=== PATIENT | female | born 1965 | race Caucasian/White ===

== ENCOUNTER → 2016-10-18 | Outpatient (CLI) | payer OTHER ==
[~2016-10-18] MED LIST: AUGMENTIN 875875 MG PO; GABAPENTIN100 M2 PO; PREDNISONE10 MG PO; ROBITUSSIN AC 110 ML PO; VENTOLIN H0.09 MG/AC INH
[2016-10-18 12:54] LABS: HEMOGLOBIN A1c 5.4 % (4.8-5.6)
[2016-10-18 13:03] LABS: ALBUMIN 3.5 gm/dl (3.1-4.5); ALKALINE PHOSPHATASE 101 U/L (45-117); BILIRUBIN, DIRECT 0.2 mg/dL (0.0-0.2); BILIRUBIN, TOTAL 0.4 mg/dl (0.2-1.0); BUN 13 mg/dl (7-24); CARBON DIOXIDE 29 mmol/L (21-32); CHLORIDE 108 mmol/L (98-107); CHOLESTEROL 162 mg/dL (<200); EST GLOM FILT AFRICAN AMERICAN > 60 ml/min; GLUCOSE 128 mg/dL (65-99); HDL CHOLESTEROL 54 mg/dl (40-60); LDL CHOLESTEROL 75 mg/dL (9-159); SGOT/AST 54 IU/L (3-35); SGPT/ALT 66 U/L (12-78); SODIUM 140 mmol/L (136-145); TOTAL PROTEIN 7.5 gm/dL (6.4-8.2); TRIGLYCERIDES 164 mg/dl (<150); VLDL CHOLESTEROL 33 mg/dL (6-40)
[2016-10-18 13:04] LABS: HIV1/2 RAPID ANTIBODIES NEGATIVE (NEGATIVE)
[2016-10-18 14:00] LABS: FOLIC ACID 13.81 ng/mL (>5.38); VITAMIN D, 25-HYDROXY 10.6 ng/mL (30-100)
[2016-10-19 07:07] LABS: HEP B CORE AB TOTAL 006718 Positive (Negative); HEPATITIS B SURFACE AB 006395 Non Reactive (.)
[2016-10-20 15:08] LABS: AB TO HEPATITIS Be AG 006635 Positive (Negative)
== END | disposition home or self-care (01) ==
LOC: LAB 11:19 → RESCLI 11:19
PROVIDERS: Hospitalist
DX: Z00.00 Encounter for general adult medical examination without abnormal findings (principal)

== ENCOUNTER → 2016-11-01 | Outpatient (CLI) | payer OTHER | END | disposition home or self-care (01) | LOC: RESCLI 01:27 | DX: I10 Essential (primary) hypertension (principal); B19.10 Unspecified viral hepatitis B without hepatic coma; N39.0 Urinary tract infection, site not specified; E55.9 Vitamin D deficiency, unspecified; E53.8 Deficiency of other specified B group vitamins ==

== ENCOUNTER 2017-07-17 13:04 | Inpatient (IN) | payer OTHER ==
[~2017-07-17] VITALS: Ht 177.8 cm; Wt 79.8 kg
--- NOTE | ~2017-07-17 | EKG ---
[place], [place] ELECTROCARDIOGRAM REPORT NAME: ROMINA MCKEON UNIT #: [id number] ROOM: [facility] DOCTOR: CORETTA OJEDA MD BIRTHDATE: [birth year] DOS: 07/18/2017 IMPRESSION: Sinus bradycardia, otherwise normal ECG. Coretta Ojeda MD CM:EKGRPT:ELECTROCARDIOGRAM REPORT [phone] CORETTA OJEDA MD
--- NOTE | ~2017-07-17 | EKG ---
[place], [place] ELECTROCARDIOGRAM REPORT NAME: ROMINA MCKEON UNIT #: [id number] ROOM: [facility] DOCTOR: CORETTA OJEDA MD BIRTHDATE: [birth year] DOS: 07/18/2017 ELECTROCARDIOGRAM REPORT RESULTS: Normal sinus rhythm, nonspecific ST-T changes, abnormal ECG. No old EKGs to compare. Coretta Ojeda MD CM:EKGRPT:ELECTROCARDIOGRAM REPORT [id number] CORETTA OJEDA MD
[2017-07-17 13:16] VITALS: BP 130/91
[2017-07-17 13:27] LABS: BASO % 0.5 % (0.0-1.0); EOS # 0.1 10*3/uL (0.0-0.4); EOS % 1.9 % (1.0-4.0); HEMATOCRIT 44.6 % (37.0-47.0); HEMOGLOBIN 15.4 g/dl (12.0-16.0); LYMPH # 2.8 10*3/uL (1.3-4.4); LYMPH % 47.3 % (27.0-41.0); MEAN CELL VOLUME 96.3 fl (81.0-99.0); MEAN CORPUSCULAR HGB 33.3 pg (27.0-31.0); MEAN CORPUSCULAR HGB CONC 34.5 g/dl (33.0-37.0); MEAN PLATELET VOLUME 11.3 fl (9.6-12.3); MONO # 0.3 10*3/uL (0.1-1.0); MONO % 4.4 % (3.0-9.0); NEUT # 2.7 10*3/uL (2.3-7.9); NEUT % 45.7 % (47.0-73.0); PLATELET COUNT AUTOMATED 147 10*3/uL (130-400); RED BLOOD COUNT 4.63 10*6/uL (4.10-5.10); RED CELL DISTRI WIDTH 12.1 % (0-14.5); WHITE BLOOD COUNT 5.9 10*3/uL (4.8-10.8)
[2017-07-17 13:43] LABS: ALBUMIN 3.6 gm/dl (3.1-4.5); ALKALINE PHOSPHATASE 93 U/L (45-117); BUN 11 mg/dl (7-24); CHLORIDE 105 mmol/L (98-107); CREATININE 0.69 mg/dL (0.55-1.02); POTASSIUM 4.5 mmol/L (3.5-5.1); SGOT/AST 65 IU/L (3-35); SGPT/ALT 87 U/L (12-78); SODIUM 139 mmol/L (136-145); TOTAL PROTEIN 7.9 gm/dL (6.4-8.2)
[2017-07-17 13:44] LABS: TROPONIN I < 0.015 ng/ml (<0.045)
[2017-07-17 14:03] VITALS: BP 134/86
[2017-07-17 15:00] VITALS: BP 133/85
[2017-07-17 16:13] LABS: URINE AMPHETAMINES < 1000 (1000ng/ml); URINE BARBITURATES < 200 (200ng/ml); URINE BENZODIAZEPINES < 200 (200ng/ml); URINE CANNABINOIDS (THC) < 50 (50ng/ml); URINE COCAINE < 300 (300ng/ml); URINE METHADONE < 300 (300ng/ml); URINE OPIATES < 300 (300ng/ml)
[2017-07-17 16:18] LABS: URINE PHENCYCLIDINE < 25 (25ng/ml)
[2017-07-17 20:00] VITALS: BP 124/68
[2017-07-17] MEDS ORDERED: NEXIUM 24HR20 M2 PO (20:30)
[2017-07-17] MEDS ORDERED: IBUPROFEN PM C1 EACH PO (20:32)
[2017-07-17] MEDS ORDERED: IBUPROFEN IB200 M1 PO (20:33)
[2017-07-17] MEDS ORDERED: TUMS300 MG PO (20:34)
[2017-07-18] VITALS: BP 128/82
[2017-07-18 04:00] VITALS: BP 114/81; BP 120/54
[2017-07-18 08:00] VITALS: BP 119/72
[2017-07-18 08:07] LABS: BASO % 0.4 % (0.0-1.0); EOS # 0.1 10*3/uL (0.0-0.4); EOS % 2.6 % (1.0-4.0); HEMATOCRIT 41.8 % (37.0-47.0); HEMOGLOBIN 14.7 g/dl (12.0-16.0); LYMPH # 2.5 10*3/uL (1.3-4.4); LYMPH % 55.6 % (27.0-41.0); MEAN CELL VOLUME 95.7 fl (81.0-99.0); MEAN CORPUSCULAR HGB 33.6 pg (27.0-31.0); MEAN CORPUSCULAR HGB CONC 35.2 g/dl (33.0-37.0); MEAN PLATELET VOLUME 12.2 fl (9.6-12.3); MONO # 0.3 10*3/uL (0.1-1.0); MONO % 6.8 % (3.0-9.0); NEUT # 1.6 10*3/uL (2.3-7.9); NEUT % 34.4 % (47.0-73.0); PLATELET COUNT AUTOMATED 117 10*3/uL (130-400); RED BLOOD COUNT 4.37 10*6/uL (4.10-5.10); WHITE BLOOD COUNT 4.6 10*3/uL (4.8-10.8)
[2017-07-18 08:25] LABS: ACT PARTIAL THROMBO TIME 26.7 SECONDS (20.8-31.5)
[2017-07-18 08:31] LABS: BUN 16 mg/dl (7-24); CHLORIDE 106 mmol/L (98-107); CHOLESTEROL 155 mg/dL (<200); CREATININE 0.64 mg/dL (0.55-1.02); PHOSPHOROUS 4.2 mg/dL (2.5-4.9); POTASSIUM 4.2 mmol/L (3.5-5.1); SGOT/AST 51 IU/L (3-35); SGPT/ALT 73 U/L (12-78); SODIUM 142 mmol/L (136-145); TOTAL PROTEIN 6.9 gm/dL (6.4-8.2); TRIGLYCERIDES 171 mg/dl (<150); VLDL CHOLESTEROL 34 mg/dL (6-40)
[2017-07-18 08:38] LABS: ALKALINE PHOSPHATASE 84 U/L (45-117); FREE T4 1.11 ng/dl (0.76-1.46); HDL CHOLESTEROL 45 mg/dl (40-60); LDL CHOLESTEROL 76 mg/dL (9-159)
[2017-07-18 08:45] LABS: VITAMIN D, 25-HYDROXY 14.9 ng/mL (30-100)
[2017-07-18 12:00] VITALS: BP 140/86
[2017-07-18] MEDS ORDERED: VITAMIN D-32000 UNI1 PO (15:49)
== END 2017-07-18 16:44 | disposition home or self-care (01) | DRG 194 ==
LOC: ED 13:04 → EDSTATUS 13:04 → 5E 13:59 → EDHOLD 13:59 → 5E 14:05
PROVIDERS: Emergency Medicine; Family Medicine; Internal Medicine
PROC: 4A02XM4 Measurement of Cardiac Total Activity, External Approach (ICD-10-PCS; principal; 2017-07-18)
PROC: 3E073KZ Introduction of Other Diagnostic Substance into Coronary Artery, Percutaneous Approach (ICD-10-PCS; 2017-07-18)
DX: R09.1 Pleurisy (principal); B18.1 Chronic viral hepatitis B without delta-agent; G62.9 Polyneuropathy, unspecified; I10 Essential (primary) hypertension; R74.0 Nonspecific elevation of levels of transaminase and lactic acid dehydrogenase [LDH]; K21.9 Gastro-esophageal reflux disease without esophagitis; B18.2 Chronic viral hepatitis C; R01.1 Cardiac murmur, unspecified; R73.03 Prediabetes; M94.0 Chondrocostal junction syndrome [Tietze]; F19.10 Other psychoactive substance abuse, uncomplicated; Z72.0 Tobacco use; Z71.6 Tobacco abuse counseling; Z90.49 Acquired absence of other specified parts of digestive tract; Z98.51 Tubal ligation status; Z83.3 Family history of diabetes mellitus; Z82.49 Family history of ischemic heart disease and other diseases of the circulatory system; Z80.9 Family history of malignant neoplasm, unspecified; Z79.899 Other long term (current) drug therapy

== ENCOUNTER → 2017-08-01 | Outpatient (CLI) | payer OTHER ==
[~2017-08-01] MED LIST changes: +IBUPROFEN IB200 M1 PO; +IBUPROFEN PM C1 EACH PO; +NEXIUM 24HR20 M2 PO; +TUMS300 MG PO; +VITAMIN D-32000 UNI1 PO
== END | disposition home or self-care (01) ==
LOC: RESCLI 03:54
DX: J01.90 Acute sinusitis, unspecified (principal); M79.2 Neuralgia and neuritis, unspecified; E55.9 Vitamin D deficiency, unspecified; M19.90 Unspecified osteoarthritis, unspecified site; K21.9 Gastro-esophageal reflux disease without esophagitis; J44.9 Chronic obstructive pulmonary disease, unspecified

== ENCOUNTER → 2017-08-22 | Outpatient (CLI) | payer OTHER | END | disposition home or self-care (01) | LOC: RESCLI 03:12 | DX: K21.9 Gastro-esophageal reflux disease without esophagitis (principal); M79.2 Neuralgia and neuritis, unspecified; M19.90 Unspecified osteoarthritis, unspecified site; B19.20 Unspecified viral hepatitis C without hepatic coma; E55.9 Vitamin D deficiency, unspecified; F17.200 Nicotine dependence, unspecified, uncomplicated; J44.9 Chronic obstructive pulmonary disease, unspecified; I10 Essential (primary) hypertension; B19.10 Unspecified viral hepatitis B without hepatic coma; R05 Cough; Z68.32 Body mass index [BMI] 32.0-32.9, adult ==